=== PATIENT | male | born 1980 | race Two or more races ===

== ENCOUNTER 2017-06-19 15:53 | Emergency (ER) | payer OTHER, MEDICAID ==
[~2017-06-19] VITALS: Ht 157.5 cm; Wt 63.5 kg
[2017-06-19] MEDS ORDERED: TERBUTALINE SULFATE 1 MG/ML 1ML VIAL SC ONE (20:30)
[2017-06-20 00:07] VITALS: BP 114/65
== END 2017-06-20 00:41 | disposition home or self-care (01) ==
LOC: ER 16:32
DX: N48.30 Priapism, unspecified (principal); G82.20 Paraplegia, unspecified
CPT/HCPCS: 96372; 99283; J3105; J7030